=== PATIENT | male | born 1970 | race Caucasian/White ===

== ENCOUNTER 2016-06-24 14:24 | Emergency (ER) | payer SELFPAY ==
[~2016-06-24 14:24] MED LIST: AMBIEN; BACTRIM DS TABL1 TAB PO; BIPOLAR MEDS; NO HOME MEDS; TRAZODONE HCL150 MG PO
[2016-06-24] MEDS ORDERED: AUGMENTIN 875-1 EAC2 PO (16:50)
== END 2016-06-24 17:00 ==
LOC: EDMED 14:24
PROC: 0HQDXZZ Repair Right Lower Arm Skin, External Approach (ICD-10-PCS; principal; 2016-06-24)
PROC: 0HQEXZZ Repair Left Lower Arm Skin, External Approach (ICD-10-PCS; 2016-06-24)
DX: S51.852A Open bite of left forearm, initial encounter (principal); S51.851A Open bite of right forearm, initial encounter; Z23 Encounter for immunization; W54.0XXA Bitten by dog, initial encounter
CPT/HCPCS: J1170; J2405